=== PATIENT | male | born 1965 | race Caucasian/White ===

== ENCOUNTER 2018-08-12 23:33 | Emergency (ER) | payer SELFPAY ==
[~2018-08-12] VITALS: Ht 167.6 cm; Wt 77.1 kg
[2018-08-12 23:35] VITALS: BP 147/88
--- NOTE | 2018-08-12 23:35 | NUR ---
PT TO ED [facility] FOR ALOC. PT WAS RECENTLY RELEASED [place] AND FOUND IN [facility]ARKING [facility] OF [facility]. PT IS ALERT TO NAME AND PLACE. PT DENIES PAIN AT THIS TIME. NO OBVIOUS INJURIES NOTED. PT PLACED INTO BED, PENDING MD POMPA.
--- NOTE | 2018-08-12 23:44 | NUR ---
Dr. Stockton evaluating patient at bedside.
--- NOTE | 2018-08-13 00:05 | NUR ---
SPOKE W/ PT'S SISTER THERESA CHU. .
[2018-08-13 00:07] LABS: BASOPHILS # (AUTO) 0.1 K/uL (0.00-0.22); BASOPHILS % (AUTO) 0.6 % (0.0-2.0); EOSINOPHILS # (AUTO) 0.1 K/uL (0-0.4); HEMATOCRIT 45.4 % (36-52); LYMPHOCYTES # (AUTO) 3.2 K/uL (2.0-11.5); LYMPHOCYTES % (AUTO) 26.7 % (20.5-51.1); MEAN CORPUSCULAR HEMOGLOBIN 30 pg (27-31); MEAN CORPUSCULAR HGB CONC 33 g/dL (33-37); MEAN CORPUSCULAR VOLUME 90.5 fL (80-94); MONOCYTES # (AUTO) 0.8 K/uL (0.8-1.0); MONOCYTES % (AUTO) 6.6 % (1.7-9.3); NEUTROPHILS # (AUTO) 7.8 K/uL (1.8-7.7); NEUTROPHILS % (AUTO) 65.1 % (42.2-75.2); PLATELET COUNT (AUTO) 222 K/uL (140-450); RED BLOOD CELL COUNT(AUTO) 5.02 MIL/uL (4.20-6.10); RED CELL DISTRIBUTION WIDTH 13.2 % (11.6-13.7); WHITE BLOOD COUNT (AUTO) 11.9 K/uL (4.8-10.8)
[2018-08-13 00:17] LABS: CARBON DIOXIDE 27.6 mmol/L (21-32); CHLORIDE 106 mmol/L (98-107); CREATININE 1.2 mg/dL (0.7-1.3); GFR ARICAN-AMERICAN 82 mL/min (>90); GLUCOSE 137 mg/dL (74-106); POTASSIUM 3.6 mmol/L (3.5-5.1); SODIUM SERUM 142 mmol/L (136-145); UREA NITROGEN, BLOOD 19 mg/dL (7-18)
[2018-08-13 00:20] VITALS: BP 138/84
--- NOTE | 2018-08-13 00:20 | NUR ---
Patient discharged with v/s stable. Written and verbal after care instructions given and explained. Patient alert, oriented and verbalized understanding of instructions. Ambulatory with steady gait. All questions addressed prior to discharge. ID band removed. Patient advised to follow up with PMD. Rx of KEFLEX given. Patient educated on indication of medication including possible reaction and side effects. Opportunity to ask questions provided and answered. Given list of available shelters in surrounding areas. PT D/C IN [facility] [employer] [facility]ING.
[2018-08-13 00:23] LABS: ALBUMIN 3.8 g/dL (3.4-5.0); ASPARTATE AMINOTRANSFERASE 29 U/L (15-37); TOTAL BILIRUBIN 0.5 mg/dL (0.0-1.0)
[2018-08-13 00:25] LABS: ACETAMINOPHEN < 0.5 ug/ml (10-30); SALICYLATE < 2.8 mg/dL (2.8-20.0)
[2018-08-13 00:43] LABS: BARBITURATE, URINE NEG. ng/ml (NEG <=200); BENZODIAZEPINE, URINE NEG. ng/mL (NEG <=200); CANNABINOID, URINE NEG. ng/mL (NEG <=50); COCAINE, URINE NEG. ng/mL (NEG <=300); OPIATE, URINE NEG. ng/mL (NEG <=2000); PHENCYCLIDINE SCREEN,URINE NEG. ng/mL (NEG <=25)
== END 2018-08-13 00:20 | disposition home or self-care (01) ==
LOC: MED 23:33
DX: L03.114 Cellulitis of left upper limb (principal); Z88.0 Allergy status to penicillin
CPT/HCPCS: 36415; 80053; 80305; 85025; 99283; G0480; G0482

== ENCOUNTER 2018-08-13 04:45 | Emergency (ER) | payer OTHER ==
[~2018-08-13] VITALS: Ht 167.6 cm; Wt 77.1 kg
[2018-08-13 05:01] VITALS: BP 141/68
--- NOTE | 2018-08-13 05:04 | NUR ---
PT AMBULATED TO LOBBY WITH VSS.
--- NOTE | 2018-08-13 06:00 | NUR ---
NO ANSWER AT THIS TIME.
--- NOTE | 2018-08-13 06:30 | NUR ---
CALL NO ANSWER.
--- NOTE | 2018-08-13 06:47 | NUR ---
PT AMBULATED WITH NO ASSISTANCE TO ER BED 1 FROM THE ER [facility]
--- NOTE | 2018-08-13 06:50 | NUR ---
PATIENT PRESENTS TO ED WITH LEFT HAND PAIN. PT STATES SUDDEN ONSET. DENIES N/V/D; SKIN IS PINK/WARM/DRY; AAOX4 WITH EVEN AND STEADY GAIT; LUNGS CLEAR BL; HR EVEN AND REGULAR; PT DENIES ANY FEVER, CP, SOB, OR COUGH AT THIS TIME; PATIENT STATES PAIN OF 10/10 AT THIS TIME; VSS; PATIENT POSITIONED FOR COMFORT; HOB ELEVATED; BEDRAILS UP X2; BED DOWN. ER MD MADE AWARE OF PT STATUS. MILD REDNESS AND EDEMATOUS TO LEFT HAND, NO DISCHARGE OR NOTABLE DEFORMITY. RADIAL PULSES WNL BL. CAP REFIL <3. AROM. PT IN BED, BED IN LOWER LOCKED POSITION. ER MD MADE AWARE OF PT STATUS. WILL CONTINUE TO MONITOR. PMH: SCHIZOPHRENIA RX: DENIES
[2018-08-13] MEDS ORDERED: ACETAMINOPHEN 325 MG TAB PO ONE (07:05)
--- NOTE | 2018-08-13 07:11 | NUR ---
SBAR GIVEN TO FRANTZ SWENSON AT THIS TIME.
--- NOTE | 2018-08-13 07:11 | NUR ---
RECEIVED REPORT FROM ELISE LANDRY. PT C/O PAIN L ARM 12/17 AND CRYING .PT STATED I WANT TO TALK TO SW & I WANT TO GO SEE DR AT [facility] & THEY KNOW ME".
[2018-08-13] MEDS ORDERED: ACETAMINOPHEN 325 MG TAB ONE (07:22)
--- NOTE | 2018-08-13 07:31 | NUR ---
WOUND DRESSING TO LEFT HAND BY MIGDALIA LOPEZ. PT TOLERATED PROCEDURE WELL.
--- NOTE | 2018-08-13 07:50 | NUR ---
WAITING FOR SW. Patient appears to be resting comfortably in bed. BP 149/85, Respirations even and unlabored.WILL CONTINUE TO MONITOR.
--- NOTE | 2018-08-13 09:26 | NUR ---
[facility] AT BEDSIDE WITH PT
[2018-08-13 11:22] VITALS: BP 149/85
--- NOTE | 2018-08-13 11:23 | NUR ---
Patient discharged with v/s stable. Written and verbal after care instructions given and explained. Patient alert, oriented and verbalized understanding of instructions. Ambulatory with steady gait. All questions addressed prior to discharge. ID band removed. Patient advised to follow up with PMD. Rx of ACETAMINOPHEN, AMOX given. Patient educated on indication of medication including possible reaction and side effects. Opportunity to ask questions provided and answered.
== END 2018-08-13 11:23 | disposition home or self-care (01) ==
LOC: MED 04:45
DX: L03.114 Cellulitis of left upper limb (principal); Z88.0 Allergy status to penicillin
CPT/HCPCS: 99283